=== PATIENT | female | born 1995 | race Caucasian/White ===

== ENCOUNTER 2017-01-10 16:00 | Emergency (ER) | payer MEDICAID ==
[~2017-01-10] VITALS: Ht 162.6 cm; Wt 82.0 kg
[2017-01-10 16:00] VITALS: BP 127/90
[~2017-01-10 16:00] MED LIST: UNK MEDS
== END 2017-01-10 19:30 | disposition left against medical advice (07) ==
LOC: ER 18:36
DX: M54.2 Cervicalgia (principal); R07.89 Other chest pain; R00.2 Palpitations; F17.200 Nicotine dependence, unspecified, uncomplicated; V49.9XXA Car occupant (driver) (passenger) injured in unspecified traffic accident, initial encounter; Y93.89 Activity, other specified; Y92.89 Other specified places as the place of occurrence of the external cause; Y99.8 Other external cause status